=== PATIENT | female | born 1945 | race Caucasian/White ===

== ENCOUNTER 2019-01-30 08:30 | Day surgery (SDC) | payer MEDICARE, BC ==
[~2019-01-30] VITALS: Ht 172.7 cm; Wt 88.5 kg
[2019-01-30 09:37] LABS: BASOPHILS 0.4 % (0-2); EOSINOPHILS 4.3 % (0-7); HEMATOCRIT 33.5 % (36.0-48.0); HEMOGLOBIN 10.4 g/dL (12-16); IMMATURE GRANULOCYTES 0.2 % (0-5); LYMPHOCYTES 28.8 % (15-50); MCH 30.4 pg (26.0-34.0); MEAN PLATELET VOLUME 9.2 fL (7.4-10.4); MONOCYTES 8.9 % (2-11); NEUTROPHILS 57.4 % (40-80); PLATELET COUNT 235 10x3/uL (130-400); RBC 3.42 10x6/uL (4.00-5.40); RDW 17.2 % (11.5-14.5); WBC 5.6 10x3/uL (4.8-10.8)
[2019-01-30 09:46] LABS: CALCIUM 8.7 mg/dL (8.5-10.1); CARBON DIOXIDE 17.5 mmol/L (21.0-32.0); CREATININE - SERUM 4.7 mg/dL (0.6-1.3); POTASSIUM - SERUM 4.5 mmol/L (3.5-5.1)
[2019-01-30 09:47] LABS: INR 1.21 (0.85-1.17); PROTIME 14.7 SECONDS (11.6-15.0)
[2019-01-30] MEDS ORDERED: CARDIZEM CD240 MG PO (10:20)
[2019-01-30] MEDS ORDERED: RENAGEL800 MG PO (10:21)
[2019-01-30] MEDS ORDERED: CARDURA1 MG PO (10:21)
[2019-01-30] MEDS ORDERED: SODIUM BICARBO325 MG PO (10:21)
[2019-01-30] MEDS ORDERED: HYDROCODON-ACE1 EA10 (10:21)
[2019-01-30 10:24] VITALS: Ht 172.7 cm; Wt 88.5 kg
[2019-01-30] MEDS ORDERED: ULTRAM50 MG PO (15:17)
--- NOTE | 2019-01-30 16:41 | NUR ---
1640-CONTACTED STOREPERSON FOR OBS BED PER MD ORDERS
--- NOTE | 2019-01-30 16:55 | NUR ---
MEKHI PUGH NOTIFIED BY PHONE OF PATIENT'S OVERNIGHT ADMISSION
--- NOTE | 2019-01-30 17:18 | NUR ---
1716- ATTEMPTED TO CALL REPORT TO TRANSFER PT TO 2135. PT WILL BE ADMITTED FOR OBS TO 2136- ROOM IS NOT CLEAN AT THIS TIME. WILL NOTIFY WHEN ROOM AVAILABLE.
--- NOTE | 2019-01-30 17:36 | NUR ---
1720-REPORTS PAIN TO ABD 10/01. IV PATENT TO LEFT JUGLAR AT [facility].
--- NOTE | 2019-01-30 18:03 | NUR ---
REPORT CALLED TO BJ CRUZ RN ON MED 2, PATIENT TRANSFERRED BY WHEELCHAIR TO ROOM 3561
--- NOTE | 2019-01-30 18:08 | NUR ---
PATIENT DROWSY, REQUIRES ASSIST WITH TRANSFERRING TO WHEELCHAIR, PATIENT UNSTEADY
[2019-01-30 20:15] VITALS: BP 145/59
--- NOTE | 2019-01-30 23:48 | NUR ---
PT'S DRESSING TO RIGHT SIDED ABDOMINAL INCISION SATURATED IN BLOOD. CHANGED DRESSING APPLIED 2X2 AND TEGRADERM OVER IT. PT IS RESTING WITH RR EVEN AND UNLABORED AT THIS TIME. WILL CONTINUE TO MONITOR.
[2019-01-31 00:29] VITALS: BP 125/71
--- NOTE | 2019-01-31 04:06 | NUR ---
PT RESTING IN BED WITH EYES CLOSED. RR EVEN AND UNLABORED. BED LOW CALL LIGHT WITHIN REACH. WILL CONTINUE TO MONITOR.
[2019-01-31 04:15] VITALS: BP 167/56
--- NOTE | 2019-01-31 05:54 | NUR ---
PT COMPLAINS OF PAIN IN ABDOMEN AND THROAT. 11/01. PRN PAIN MEDICATION GIVEN. WILL CONTINUE TO MONITOR.
--- NOTE | 2019-01-31 07:58 | NUR ---
PT AWAKE AND ORIENTED, WANTS TO KNOW WHEN SHE WILL BE LEAVING THIS MORNING, BUT IS WANTING DR. VERGARA TO LOOK AT HER INCCISION SITE FIRST AND MAKE SURE IT'S OK. AT BEDSIDE, CL IN REACH, SRX2.
[2019-01-31 08:19] VITALS: BP 170/77
--- NOTE | 2019-01-31 14:47 | NUR ---
PT ESCORTED OUT. RN PULLED IJ. NO BLEEDING AT SITE. TAKEN TO POV, DRIVING.
--- NOTE | 2019-01-31 14:53 | NUR ---
I have reviewed this patient and I concur with the Shift Assessment completed by the Licensed Practical Nurse today this shift.
--- NOTE | 2019-02-03 08:54 | OP ---
PATIENT NAME: CHINO HORN MEDICAL RECORD: [id number] :44 LOCATION:[facility] ADMISSION DATE: SURGEON: AIDAN MONROE MD DATE OF OPERATION: 01/30/2019 REFERRED BY: Ekta Barron MD PREOPERATIVE DIAGNOSES: Chronic kidney disease stage V and mechanical malfunction of peritoneal dialysis catheter. POSTOPERATIVE DIAGNOSES: Chronic kidney disease stage V and mechanical malfunction of peritoneal dialysis catheter. OPERATION PERFORMED: Laparoscopic implantation of new peritoneal dialysis catheter and removal of old peritoneal dialysis catheter. SURGEON: Aidan Monroe MD ANESTHESIA: General endotracheal per PATENT CHEMIST. PREOPERATIVE NOTE: Ms. Horn is a very sweet 73-year-old white female patient with stage V chronic kidney disease, who has some uremic symptomatology and recently was started on peritoneal dialysis. She had surgery at [facility] with creation of a left radiocephalic AV fistula, which failed immediately or early and placement of a PD catheter then, that catheter has been increasingly difficult with poor drainage. X-ray reveals the catheter to be in the right gutter or right lower quadrant and not in the pelvis. Dr. Jack was unable to move the catheter at his cathetergram procedure and I am bringing her as an outpatient to the hospital and to the operating room today with plans to do either laparoscopic revision of her existing catheter or insertion of a new on and removal of the old. Under general endotracheal anesthesia per PATENT CHEMIST, the patient was placed on the operating table in supine position and prepped and draped in sterile manner. A Cortez catheter was not placed and fortunately that did not cause problems or interfere with performance of the operation. The bladder; however, was full, or filling with urine. The abdomen was entered through a small incision in the left upper quadrant, a 5-mm XL Optiview port with a 5-mm 0-degree laparoscope was inserted and pneumoperitoneum was established with carbon dioxide. The existing peritoneal catheter, which was inserted with an incision to the right of the midline and just below the level of the umbilicus was seen. It appeared to enter more or less a straight down through the abdominal wall or actually even directed somewhat superiorly and to the right. It was not placed in a preperitoneal tunnel and was not at all directed down towards the pelvis. I inserted another 5-mm port in the left lower quadrant about the anterior axillary line and manipulated the catheter with a blunt grasper. It was not entrapped in omentum and really there were no adhesions to it. It simply was now directed to the pelvis. I considered correcting this with an anterior abdominal wall suture, which might be passed around the catheter and help keep it directed downward, but I felt that the angulation was simply not suitable and it would be better to go ahead and place a new one accepting the fact that the old one will have to be removed and that would cause an extended period during which we could not resume peritoneal dialysis because of the risk of leaking. OPERATIVE REPORT [id number] CHINO HORN I chose a new Merit adult standard dual-cuff classic flex-neck coil catheter and measured with it from the symphysis pubis cephalad to the left of the midline and identified a point for incision. This actually was somewhat lower than the one on the right side had been. A transverse incision was made and carried down to the anterior rectus sheath where a pursestring suture of 0 Vicryl was placed. The rectus muscle and sheath was infiltrated then with 0.25% Marcaine with epinephrine. An introducer was then passed through the anterior rectus sheath and rectus muscle to the preperitoneal space where under direct laparoscopic vision, it was directed downwards and kept in the preperitoneal space about mcfp down to the pelvis before it entered the peritoneal cavity. Through that introducer, I inserted the catheter and then I positioned the coiled portion within the pelvis. Note, there was no omentum or significant amount of omentum in the lower abdomen at all. The catheter was then placed in a subcutaneous tunnel directed upward into the left as had been marked on the abdomen preop. The more superficial of the 2 Dacron felt cuffs was 3-4 cm proximal to the exit site. The catheter was flushed with saline and noted and flushed easily after the pursestring suture was tied. The catheter was then attached to a transfer set and 1000 cc of warm saline was allowed to run into the peritoneal cavity. The IV bag was then placed on the floor and the fluid allowed to run out and this demonstrated a good draining characteristics for this catheter. I then reopened the incision on the right and exposed the existing or previously placed PD catheter and to the superficial Dacron felt cuff and from the surrounding tissues. I then put the catheter on some traction and identified the anterior rectus sheath and the deep cuff actually just directly beneath this with electrocautery. I was able to dissect the cuff from the surrounding fascia and muscle and then removed the entire catheter. It was discarded. The anterior rectus sheath was then approximated with interrupted [id number] 0 Vicryl sutures. The wounds were all irrigated with saline and infiltrated with 0.25% Marcaine and closed with interrupted inverted 3-0 Vicryl and running intracuticular 4-0 Stratafix. The laparoscopic ports were removed after allowing the carbon dioxide to escape. The sites were infiltrated with Marcaine and closed with interrupted inverted 3-0 subcuticular Vicryl sutures. All the incisions were sealed and closed further with Dermabond and dressed with Maxorb Ag, Tegaderm, and Cavilon skin prep. A chlorhexidine BioPatch was placed around the catheter at its new exit site and a Tegaderm over that and the catheter was then coiled and all then covered with a 4 x 4 Medipore, adhesive dressing. The patient was then awakened from her anesthetic and in stable condition taken to the recovery room. I believe, Ms. Horn will be able to go home this afternoon. She will be resuming her usual diet and her home medications and is given a prescription for 14 Tramadol 50 mg tablets, she can take 1-2 every 4-6 hours p.r.n. for pain and is instructed also to use an ice pack off and on to the abdomen and periumbilical areas to help relieve discomfort and reduce swelling and bleeding in these areas. The patient will be given an appointment to return to see me in my office next week or early the week after. I have asked that she be appointed to have her catheter flushed next week. She will need close follow up with Dr. Barron for the possible need to begin hemodialysis if her uremic symptoms worsen before we feel that we can resume peritoneal dialysis and that I believe should be postponed 4 or at least 3 weeks. OPERATIVE REPORT [id number] CHINO HORN Blood loss during the operation was about 5 cc, it was unreplaced. Sponges, instruments, and needles were accounted for and no drain was used. TRANSINT:[id number] Voice Confirmation ID: [id number] DOCUMENT ID: [id number] AIDAN MONROE MD at 0854 CC: SELIN CLEANING RN and EKTA BARRON MD [id number] DICTATION DATE: 01/30/19 1541 FURNITURE ASSEMBLER: 01/30/19 2242 [facility] 01/31/19 [place] [id number] [place] [id number]
== END 2019-01-31 14:47 | disposition home or self-care (01) ==
LOC: D.OPS 08:30 → D.M2 18:06 → D.OPS 01-31 14:47
PROVIDERS: Surgery; ATTEND Internal Medicine Nephrology
DX: T85.691A Other mechanical complication of intraperitoneal dialysis catheter, initial encounter (principal); Y83.9 Surgical procedure, unspecified as the cause of abnormal reaction of the patient, or of later complication, without mention of misadventure at the time of the procedure; N18.5 Chronic kidney disease, stage 5